=== PATIENT | male | born 2000 | race Hispanic/Latino ===

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

== ENCOUNTER 2020-03-24 16:41 | Emergency (ER) | payer OTHER ==
[~2020-03-24] VITALS: Ht 175.3 cm; Wt 102.1 kg
[2020-03-24 16:57] VITALS: BP 133/78
[2020-03-24 16:59] VITALS: BP 133/78
--- NOTE | 2020-03-24 17:00 | NUR ---
ARRIVAL PATIENT ARRIVED TO ED5 AMBULATORY, C/O OF LACERATION TO THE RIGHT THUMB TODAY, PATIENT STATES HE WAS AT WORK WHEN HE OPENED A CAN OF TOMATO SAUCE HE CUT HIS THUMB, AREA CLEANED WITH STERILE WATER AND PRESSURE APPLIED, DOCTOR MARLY NOTIFIED OF PATIENT'S ARRIVAL.
[2020-03-24] MEDS ORDERED: ADACEL VIAL IM ONE ×2 (17:17→17:30)
--- NOTE | 2020-03-24 17:19 | ER.PDOC ---
General Chief Complaint: Extremities Stated Complaint: LACERATION ON HAND Time seen by MD: 17:15 Source: patient Exam Limitations: no limitations History of Present Illness Initial Comments Patient cut thumb on lid of a can of pasta he opened while at work. Is unaware of when his last Tetanus was. Occurred: just prior to arrival Where: work Severity: moderate Modifying Factors: nothing Allergies: Coded Allergies: No Known Allergies (Unverified , 03/02/15) Past Medical History Medical History: no pertinent history Surgical History: no surgical history Social History Alcohol Use: none Drug Use: none Reviewed Nursing Reviewed: Vital Signs, Abn. Noted, Nursing Assessment Review of Systems Constitutional: no symptoms reported EENTM: no symptoms reported Respiratory: no symptoms reported Cardiovascular: no symptoms reported Gastrointestinal: no symptoms reported Genitourinary: no symptoms reported Musculoskeletal: no symptoms reported Skin: see HPI Psychiatric/Neurological: no symptoms reported All Other Systems: Reviewed and Negative Physical Exam General Appearance: Alert, No Apparent Distress Hand: see diagram (Laceration distal volar 1st digit 1 cm), tenderness 1 - Laceration (flap) clean, no foreign body Skin: warm/dry ED LACERATION WOUND REPAIR # of Wounds/Lacerations Presen: 1 Wound Length (cm): 1 Wound cleaned: betadine Distal NVT: neuro intact, vasc intact Wound's Depth, Shape: superficial, flap Wound Explored: no foreign body removed Wound Repaired With: dermabond Layer Closure?: No Sterile Dressing Applied?: Yes Results/Orders Results/Orders Vital Signs Date Time Temp Pulse Resp B/P (MAP) Pulse Ox O2 Delivery O2 Flow Rate FiO2 03/24/20 16:59 98.0 92 18 133/78 (96) 98 Room Air 03/24/20 16:57 98.0 92 18 98 03/24/20 16:57 98.0 92 18 03/24/20 16:57 98.0 92 18 133/78 (96) 98 Room Air ER DEPART Departure Time of Disposition: 17:18 Disposition: 01 HOME, SELF-CARE Impression: Primary Impression: Laceration without foreign body Condition: Stable Patient Instructions: Fingertip Laceration Referrals: PCP,UNKNOWN (PCP) PRIMARY CARE PROVIDER Additional Instructions: Keep wound clean dry and covered Duration or Time Spent with Pa: 15 SUSANNE LUKE DO Mar 24, 2020 17:19
[2020-03-24 17:24] VITALS: BP 125/69
[2020-03-24] MEDS ORDERED: TENIVAC SYRINGE IM ONE (17:30)
== END 2020-03-24 17:30 | disposition home or self-care (01) ==
LOC: ER 16:41
DX: S61.011A Laceration without foreign body of right thumb without damage to nail, initial encounter (principal); W26.8XXA Contact with other sharp object(s), not elsewhere classified, initial encounter; Y93.89 Activity, other specified; Y92.89 Other specified places as the place of occurrence of the external cause; Y99.8 Other external cause status
CPT/HCPCS: 12001; 90471; 90715; 99283; A4649

== ENCOUNTER 2022-02-14 01:29 | Emergency (ER) | payer OTHER ==
[~2022-02-14] VITALS: Ht 180.3 cm; Wt 113.4 kg
[2022-02-14 01:38] VITALS: BP 141/83
[2022-02-14] MEDS ORDERED: LIDOCAINE 1% VIAL ONE (01:43)
--- NOTE | 2022-02-14 01:50 | ER.PDOC ---
General Chief Complaint: Extremities Stated Complaint: HAND LAC Time seen by MD: 01:43 Source: patient Exam Limitations: no limitations History of Present Illness Initial Comments Laceration of left thumb with a box knife. Occurred: just prior to arrival Where: home Severity: mild Location of Injury: (L) hand Allergies: Coded Allergies: No Known Allergies (Unverified , 03/02/15) Past Medical History Medical History: no pertinent history Surgical History: no surgical history Family History Significant Family History: no pertinent family hx Social History Smoking: non-smoker Alcohol Use: occassionally Drug Use: none Review of Systems Constitutional: no symptoms reported EENTM: no symptoms reported Respiratory: no symptoms reported Cardiovascular: no symptoms reported Gastrointestinal: no symptoms reported Skin: see HPI All Other Systems: Reviewed and Negative Physical Exam General Appearance: Alert, No Apparent Distress Hand: see diagram Wrist: nml inspection 1 - Lac Neuro: sensation nml, motor nml Vascular: no vascular compromise Tendons: tendon function nml Forearm/Elbow/Arm: uninjured above wrist Head/ENT: nml inspection, pharynx nml Neck/Back: nml inspection, non-tender Resp/CVS: no resp distress, lungs clear, heart sounds nml, reg. rate & rhythm Abdomen: non-tender, no organomegaly ED LACERATION WOUND REPAIR # of Wounds/Lacerations Presen: 1 Wound Location & Length (Requi: Left thumb Wound Length (cm): 2 Wound cleaned: betadine Anesthesia type: local Anesthesia: 1% Lidocaine Volume Anesthetic (ccs): 5 Wound's Depth, Shape: flap Irrigated w/ Saline (ccs): 20 Wound Repaired With: sutures Suture Size/Type: 4:0, ethilon Suture Style: interupted Number of Sutures: 3 Sterile Dressing Applied?: Yes Results/Orders Results/Orders Vital Signs Date Time Temp Pulse Resp B/P (MAP) Pulse Ox O2 Delivery O2 Flow Rate FiO2 02/14/22 01:38 97.9 112 16 02/14/22 01:38 97.9 112 16 141/83 (102) 98 Room Air* 0 21 02/14/22 01:38 97.9 112 16 98 Progress Progress Patient told me that he had a tetanus shot 2 years ago. 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
[2022-02-14] MEDS ORDERED: TRIPLE ANTIBIOTIC OINTMENT TP ONE (02:04)
== END 2022-02-14 02:05 | disposition home or self-care (01) ==
LOC: ER 01:29
DX: S61.012A Laceration without foreign body of left thumb without damage to nail, initial encounter (principal); F10.20 Alcohol dependence, uncomplicated; W26.0XXA Contact with knife, initial encounter; Y93.89 Activity, other specified; Y92.89 Other specified places as the place of occurrence of the external cause; Y99.0 Civilian activity done for income or pay
CPT/HCPCS: 99283; 12001; J2001

== ENCOUNTER 2022-02-22 11:05 | Emergency (ER) | payer OTHER ==
[~2022-02-22] VITALS: Ht 180.3 cm; Wt 113.4 kg
[2022-02-22 11:09] VITALS: BP 157/85
--- NOTE | 2022-02-22 11:09 | NUR ---
ARRIVAL PATIENT ARRIVED TO ED4 AMBULATORY, HERE FOR SUTURE REMOVAL, HAS LACERATION REPAIR X8 DAYS AGO, CAME TO THE ED FOR EVAL AND REMOVAL, VITAL SIGNS TAKEN AND DOCTOR NOTIFIED OF PATIENT'S ARRIVAL
--- NOTE | 2022-02-22 11:19 | ER.PDOC ---
General Chief Complaint: Requesting Medical Care Stated Complaint: SUTURE REMOVAL Time seen by MD: 11:16 Source: patient Exam Limitations: no limitations History of Present Illness Initial Procedure Done In ER: sutures were placed 1wk ago Previous ED Treatment: laceration repair Symptoms Since Procedure: no complaints Allergies: Coded Allergies: No Known Allergies (Unverified , 03/02/15) Past Medical History Medical History: no pertinent history Surgical History: no surgical history Social History Drug Use: none Physical Exam General Appearance: alert, no distress Neuro/Vascular/Tendon: no vascular compromise, sensation nml, no tendon injury, nml ROM Skin: no infection, healing wound Head/ENT: nml inspection, pharynx nml Neck/Back: nml inspection, non-tender, painless ROM ER DEPART Departure Time of Disposition: 11:18 Disposition: 01 HOME / SELF CARE / HOMELESS Impression: Primary Impression: Visit for suture removal Condition: Improved Patient Instructions: Suture Removal-Brief Referrals: PCP,UNKNOWN (PCP) PRIMARY CARE PROVIDER Duration or Time Spent with Pa: JYTOI LUGO MD Feb 22, 2022 11:19
== END 2022-02-22 11:23 | disposition home or self-care (01) ==
LOC: ER 11:05
DX: S61.219D Laceration without foreign body of unspecified finger without damage to nail, subsequent encounter (principal); X58.XXXD Exposure to other specified factors, subsequent encounter; Z48.02 Encounter for removal of sutures
CPT/HCPCS: 99281